=== PATIENT | male | born 2000 | race African-American/Black ===

== ENCOUNTER 2023-06-21 10:26 | Emergency (ER) | payer SELFPAY ==
[~2023-06-21] VITALS: Ht 175.3 cm; Wt 54.4 kg
[2023-06-21 10:30] VITALS: O2SAT 99
[2023-06-21] MEDS ORDERED: ACETAMINOPHEN 325 MG TAB PO PRN (10:45)
[2023-06-25] MEDS ORDERED: CYCLOBENZAPRINE5 MG PO (09:53)
== END 2023-06-21 11:30 | disposition home or self-care (01) ==
LOC: FSED 10:33
DX: R50.9 Fever, unspecified (principal); J06.9 Acute upper respiratory infection, unspecified; B34.9 Viral infection, unspecified; R05.9 Cough, unspecified
CPT/HCPCS: 99283